=== PATIENT | female | born 1980 | race Caucasian/White ===

== ENCOUNTER 2017-06-10 13:03 | Emergency (ER) | payer OTHER ==
--- NOTE | 2017-06-10 13:20 | ED PDOC ---
Arrival/HPI - General Time Seen by Provider: 06/10/17 13:15 Historian: Patient - History of Present Illness Narrative History of Present Illness (Text): 06/10/17 13:16 36 y/o female, no significant pmh, nkda, recently deliver a baby girl on 2017, c/o chest pain x 4 days with no fall or trauma. Aching pain, aggravated by movement, no coughing or URI symptoms, no pleuritic pain, no night sweat, no rash, no tearing pain, no dizziness, no change in vision, no other medical or psychological complaints. Past Medical History - Provider Review Nursing Documentation Reviewed: Yes - Infectious Disease Hx of Infectious Diseases: None - Past Medical History Past Medical History: No Previous - Cardiac Hx Cardiac Disorders: No - Pulmonary Hx Respiratory Disorders: No - Neurological Hx Neurological Disorder: No - HEENT Hx HEENT Disorder: No - Renal Hx Renal Disorder: No - Endocrine/Metabolic Hx Endocrine Disorders: No - Hematological/Oncological Hx Blood Disorders: No - Integumentary Hx Dermatological Disorder: No - Musculoskeletal/Rheumatological Hx Musculoskeletal Disorders: No - Gastrointestinal Hx Gastrointestinal Disorders: No - Genitourinary/Gynecological Hx Genitourinary Disorders: No - Psychiatric Hx Substance Use: No - Past Surgical History Past Surgical History: No Previous - Surgical History Hx Section: Yes - Anesthesia Hx Anesthesia: No Hx Anesthesia Reactions: No Hx Malignant Hyperthermia: No - Suicidal Assessment Feels Threatened In Home Enviroment: No Family/Social History - Physician Review Nursing Documentation Reviewed: Yes Family/Social History: Unknown Family HX Smoking Status: Never Smoked Hx Alcohol Use: No Hx Substance Use: No Hx Substance Use Treatment: No Allergies/Home Meds Allergies/Adverse Reactions: Allergies No Known Allergies Allergy (Verified 10/30/15 15:16) Home Medications: Home Meds Medication Instructions Recorded Confirmed Vit No.126/Iron/Folic 1 tab PO DAILY 05/06/16 05/06/16 [Classic Tablet] Review of Systems - Review of Systems Constitutional: absent: Fatigue, Fevers Eyes: absent: Vision Changes ENT: absent: Hearing Changes Respiratory: absent: SOB, Cough Cardiovascular: Chest Pain Gastrointestinal: absent: Abdominal Pain, Diarrhea, Nausea, Vomiting Skin: absent: Rash, Pruritis Neurological: absent: Headache Hemo/Lymphatic: absent: Adenopathy Psychiatric: absent: Anxiety, Depression, Suicidal Ideation Physical Exam Vital Signs Reviewed: Yes Vital Signs Temp Pulse Resp BP Pulse Ox 06/10/17 19:41 85 16 106/87 100 06/10/17 13:30 98.2 F 86 16 117/69 100 Temperature: Afebrile Blood Pressure: Normal Pulse: Regular Respiratory Rate: Normal Appearance: Positive for: Well-Appearing, Non-Toxic, Comfortable Pain Distress: Moderate Mental Status: Positive for: Alert and Oriented X 3 - Systems Exam Head: Present: Atraumatic, Normocephalic Pupils: Present: PERRL Extroacular Muscles: Present: EOMI Conjunctiva: Present: Normal Mouth: Present: Moist Mucous Membranes Neck: Present: Normal Range of Motion Respiratory/Chest: Present: Clear to Auscultation, Good Air Exchange, Tender to Palpation (pain is reproducible by palpitation on the anterior chest sternum region. ). No: Respiratory Distress, Accessory Muscle Use, Wheezes, Decreased Breath Sounds, Rales, Retracting, Rhonchi, Tachypneic Cardiovascular: Present: Regular Rate and Rhythm, Normal S1, S2, Other (no pedal edema). No: Murmurs Abdomen: Present: Normal Bowel Sounds. No: Tenderness, Distention, Peritoneal Signs, Rebound, Guarding Back: Present: Normal Inspection Upper Extremity: Present: Normal Inspection. No: Cyanosis, Edema Lower Extremity: Present: Normal Inspection. No: Edema Neurological: Present: GCS=15, Speech Normal, Motor Func Grossly Intact, Gait Normal, Memory Normal Skin: Present: Warm, Dry, Normal Color. No: Rashes Psychiatric: Present: Alert, Oriented x 3, Normal Insight, Normal Concentration Medical Decision Making ED Course and Treatment: 06/10/17 13:22 -labs/dimer/troponin -chest xray -ekg -IV toradol/pepcid -engineering drafter -observe and reassess 06/10/17 16:55 -Pt. stated that the pain has decreased but wants more pain med, tylenol and valium ordered. -Will order 2nd set of troponin. 06/10/17 19:29 -Heart score is low, 1-2 -EKG: NSR @ 81 BPM, no ST elevation or depression, no T wave inversion, no acute changes compared with previous ekg from 02/12/15 -Chest xray: no active disease -Labs are non-significant, 2sets of troponins and dimer are negative -Pt. feels pain relief and much better -Discharge home with naproxen, flexeril, pepcid, bed rest, follow up with your own pmd and traffic i manager within 2 days, return to the ER for any new or worsening signs or symptoms. - Lab Interpretations Lab Results: 06/10/17 14:25 06/10/17 14:25 Lab Results 06/10/17 18:30: Lactate Dehydrogenase 252 L, Total Creatine Kinase 53, Troponin I < 0.01 06/10/17 15:21: D-Dimer, Quantitative < 200 06/10/17 14:25: Sodium 141, Potassium 4.1, Chloride 106, Carbon Dioxide 24, Anion Gap 15, BUN 13, Creatinine 0.7, Est GFR ( Amer) > 60, Est GFR (Non- Af Amer) > 60, Random Glucose 95, Calcium 9.9, Magnesium 2.0, Total Bilirubin 0.7, AST 28, ALT 39, Alkaline Phosphatase 63, Lactate Dehydrogenase 366, Total Creatine Kinase 71, Troponin I < 0.01 D, Total Protein 8.3, Albumin 4.3, Globulin 4.0, Albumin/Globulin Ratio 1.1, Lipase 36 06/10/17 14:25: WBC 4.1 L D, RBC 4.60, Hgb 13.4, Hct 40.8, MCV 88.7, MCH 29.1, MCHC 32.8, RDW 13.7, Plt Count 324, MPV 11.1 H, Gran % 51.7, Lymph % (Auto) 35.3 H, Kimball % (Auto) 11.4 H, Eos % (Auto) 1.4 L, Baso % (Auto) 0.2, Gran # 2.14 , Lymph # (Auto) 1.5, Kimball # (Auto) 0.5, Eos # (Auto) 0.1, Baso # (Auto) 0.01 - RAD Interpretation Radiology Orders: 06/10/17 13:41 CHEST PORTABLE [RAD] Stat Chest xray: LUNGS: No active pulmonary disease. PLEURA: No significant pleural effusion identified, no pneumothorax apparent. CARDIOVASCULAR: Normal. OSSEOUS STRUCTURES: No significant abnormalities. VISUALIZED UPPER ABDOMEN: Normal. OTHER FINDINGS: None. IMPRESSION: No active disease. Credit Card Clerk: Radiologist - EKG Interpretation EKG Interpretation (Text): 06/10/17 13:23 -EKG: NSR @ 81 BPM, no ST elevation or depression, no T wave inversion, no acute changes compared with previous ekg from 02/12/15 Interpreted by ED Physician: Yes Type: 12 lead EKG Comparison: Com.w/previous EKG - Medication Orders Current Medication Orders: Discontinued Medications Acetaminophen (Tylenol 325mg Tab) 650 mg PO STAT STA Stop: 06/10/17 16:39 Last Admin: 06/10/17 16:47 Dose: 650 mg MAR Pain/Vitals Document 06/10/17 16:47 HI (Rec: 06/10/17 16:47 HI [id number]) Pain Reassessment Is This A Pain ReAssessment? Yes Sleep Is patient sleeping during reassessment? No Presence of Pain Presence of Pain Yes Diazepam (Valium) 5 mg PO ONCE ONE PRN Reason: Protocol Stop: 06/10/17 16:55 Last Admin: 06/10/17 17:18 Dose: 5 mg Famotidine (Pepcid) 20 mg IVP STAT STA Stop: 06/10/17 13:42 Last Admin: 06/10/17 14:43 Dose: 20 mg IVP Administration Document 06/10/17 14:43 HI (Rec: 06/10/17 14:43 HI [id number]) Charges for Administration # of IVP Administrations 1 Sodium Chloride (Sodium Chloride 0.9%) 1,000 mls @ 100 mls/hr IV .Q10H PRECIOUS Last Admin: 06/10/17 14:42 Dose: 100 mls/hr eMAR Start Stop Document 06/10/17 14:42 HI (Rec: 06/10/17 14:42 HI [id number]) Intravenous Solution Start Date 06/10/17 Start Time 14:42 Ketorolac Tromethamine (Toradol) 30 mg IVP STAT STA Stop: 06/10/17 13:42 Last Admin: 06/10/17 14:42 Dose: 30 mg MAR Pain Assessment Document 06/10/17 14:42 HI (Rec: 06/10/17 14:43 HI [id number]) Pain Reassessment Is this a pain reassessment? No IVP Administration Document 06/10/17 14:42 HI (Rec: 06/10/17 14:43 HI [id number]) Charges for Administration # of IVP Administrations 1 Re-Assess: BRADEN Pain Assessment Document 06/10/17 15:42 HI (Rec: 06/10/17 16:47 HI [id number]) Pain Reassessment Is this a pain reassessment? Yes Sleep Is patient sleeping during reassessment? No Presence of Pain Presence of Pain No - PA / ADJUSTMENT EXAMINER / Resident Statement MD/DO has reviewed & agrees with the documentation as recorded. Disposition/Present on Arrival - Present on Arrival Any Indicators Present on Arrival: No History of DVT/PE: No History of Uncontrolled Diabetes: No Urinary Catheter: No History of Decub. Ulcer: No History Surgical Site Infection Following: None - Disposition Have Diagnosis and Disposition been Completed?: Yes Diagnosis: Chest pain Disposition: HOME/ ROUTINE Disposition Time: 14:33 Patient Plan: Discharge Condition: IMPROVED Discharge Instructions (ExitCare): Chest Pain (ED) Additional Instructions: -Discharge home with naproxen, flexeril, pepcid, bed rest, follow up with your own pmd and traffic i manager within 2 days, return to the ER for any new or worsening signs or symptoms. Prescriptions: Cyclobenzaprine [Cyclobenzaprine HCl] 10 mg PO TID PRN #21 tab PRN Reason: Other Famotidine [Pepcid] 20 mg PO BID #20 tab Naproxen 500 mg PO BID PRN #28 tablet PRN Reason: Other Referrals: Narayan Smith MD [Primary Care Provider] - Follow up with primary Joe Jimenez MD [Staff Provider] - Follow up with primary Forms: WORK NOTE
[2017-06-10 13:30] VITALS: BMI 31.3
[2017-06-10 13:35] VITALS: RESP 16; TEMP 98.2; O2SAT 100
[2017-06-10] MEDS ORDERED: Sodium Chloride 0.9% 1,000 ML IV SCH (13:45)
--- NOTE | 2017-06-10 14:25 | RAD ---
HISTORY: chest pain COMPARISON: 02/12/2015 FINDINGS: LUNGS: No active pulmonary disease. PLEURA: No significant pleural effusion identified, no pneumothorax apparent. CARDIOVASCULAR: Normal. OSSEOUS STRUCTURES: No significant abnormalities. VISUALIZED UPPER ABDOMEN: Normal. OTHER FINDINGS: None. IMPRESSION: No active disease.
[2017-06-10 14:47] LABS: BASO # 0.01 K/mm3 (0.0-2.0); BASO % 0.2 % (0.0-3.0); EOS # 0.1 (0.0-0.7); EOS % 1.4 % (1.5-5.0); GRAN # 2.14 (1.4-6.5); GRAN % 51.7 % (50.0-68.0); HEMOGLOBIN 13.4 g/dL (12.0-16.0); LYMPH # 1.5 (1.2-3.4); LYMPH % 35.3 % (22.0-35.0); MEAN CELL VOLUME 88.7 fl (80.0-105.0); MEAN CORPUSCULAR HEMOGLOBIN 29.1 pg (25.0-35.0); MEAN CORPUSCULAR HGB CONC 32.8 g/dl (31.0-37.0); MEAN PLATELET VOLUME 11.1 fl (7.0-11.0); MONO # 0.5 (0.1-0.6); MONO % 11.4 % (1.0-6.0); RBC 4.6 10^6/uL (3.5-6.1); RED CELL DISTRIBUTION WIDTH 13.7 % (11.5-14.5); WHITE BLOOD COUNT 4.1 10^3/ul (4.5-11.0)
[2017-06-10 14:58] LABS: ALB/GLOB RATIO 1.1 (1.1-1.8); ALBUMIN 4.3 g/dL (3.0-4.8); ALT/SGPT 39 U/L (7-56); AST/SGOT 28 U/L (14-36); BLOOD UREA NITROGEN 13 mg/dL (7-21); CALCIUM 9.9 mg/dL (8.4-10.5); GFR AFRICAN-AMERICAN > 60; GFR NON-AFRICAN AMERICAN > 60; LIPASE 36 U/L (23-300)
[2017-06-10 15:08] LABS: TROPONIN I < 0.01 ng/mL
[2017-06-10 19:23] LABS: TROPONIN I < 0.01 ng/mL
[2017-06-10 19:47] VITALS: BP 106/87; PULSE 85
--- NOTE | 2017-06-11 09:16 | CARD ---
APPROVED REPORT EKG Measurement Heart [id number] <Conclusion> Normal Sinus Rythm. rSr Pattern V1.
== END 2017-06-10 19:41 | disposition home or self-care (01) ==
LOC: ED 13:03
DX: R07.9 Chest pain, unspecified (principal)
CPT/HCPCS: 71045; 80053; 82550; 83615; 83690; 83735; 84484; 85025; 85378; 93005; 96374; 96375; 99284; J1885; J7040